=== PATIENT | female | born 2000 | race African-American/Black ===

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

== ENCOUNTER 2022-11-26 13:09 | Outpatient (CLI) | payer OTHER, SELFPAY ==
--- NOTE | ~2022-11-26 | US_ITS ---
EXAMINATION: US pelvic complete w TV DATE: 11/26/2022 14:21 INDICATION: Pelvic pain Comparison:No prior studies for comparison. TECHNIQUE: Multiple transabdominal and endovaginal sonographic images of the pelvis performed. FINDINGS: The uterus measures 8 x 3.3 x 4 cm. The endometrial complex measures 3.5 mm. The right ovary measures 1.8 x 1.4 x 1.6 cm and the left ovary is surgically absent. There is a small 1.5 cm right ovarian cyst. Normal doppler signal in both ovaries. There is no free fluid in the pelvis. There are no abnormal masses seen on either side. IMPRESSION: 1. Small 1.5 cm right ovarian cyst. Reviewed, dictated and finalized at location []
== END 2022-11-26 13:10 | disposition home or self-care (01) ==
PROVIDERS: PCP Family Medicine; Visit Provider Family Medicine
DX: R10.2 Pelvic and perineal pain (principal); N83.201 Unspecified ovarian cyst, right side
CPT/HCPCS: 76830; 76856

== ENCOUNTER 2025-05-24 09:30 | Emergency (ER) | payer OTHER, SELFPAY ==
--- NOTE | ~2025-05-24 | CT_ITS ---
EXAM/PROCEDURE: CT abd pelvis lumbar w con HISTORY: bilateral flank pain, UTI COMPARISON: None available. TECHNIQUE: Contrast-enhanced CT of abdomen and pelvis FINDINGS: The lung bases are clear and heart size normal. In the abdomen and pelvis, mild fatty liver changes and hepatomegaly with the liver measuring 22.5 cm in the cephalocaudal dimension. The bowel gas pattern is nonobstructive with no free air free fluid or pneumatosis. Moderate amount of stool extends to the cecum. No hydroureteronephrosis. No urolithiasis seen. Anteflex uterus and adnexal regions unremarkable. No grossly inflamed appendix. Pancreas spleen stomach and adrenal glands appear normal. The stomach is unopacified and nondistended but no obvious acute abnormality seen. No bulky mesenteric or retroperitoneal lymphadenopathy or masses. Anteverted uterus and adnexal regions unremarkable. Tampon is in place. Small bone island S1 vertebral body. Multilevel degenerative changes throughout the lumbar spine with multilevel spinal canal stenosis which may be severe at L4-5. IMPRESSION: No focal acute process seen to explain source of patient's symptoms. Several chronic appearing findings including hepatomegaly, and possibly multilevel spinal canal stenosis in the lumbar spine. Reviewed, dictated and finalized at location A. 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 Several ch ronic appearing findings including hepatomegaly, and possibly multilevel spinal canal stenosis in the lumbar spine.
[2025-05-24 09:41] VITALS: BP 147/97; PULSE 91; RESP 18; TEMP 36.6; O2SAT 100
[2025-05-24 10:27] LABS: Hematocrit 43.2 % (37.0-47.0); Hemoglobin 14.9 g/dL (12.0-15.0); Immature Granulocyte Percent A 0.5 % (0-0.5); Lymphocytes Absolute Auto 4.04 K/mm3 (0.9-3.2); Mean Corpuscular HGB Conc 34.5 g/dl (32-36); Mean Corpuscular Hemoglobin 30.8 pg (26-34); Mean Corpuscular Volume 89.4 fl (80-100); Nucleated Red Blood Cells Absolute Auto 0.000 K/mm3 (0.0-0.012); Nucleated Red Blood Cells Perc 0.0 % (0.0-0.2); Platelet Count Result 455 k/mm3 (150-375); Red Blood Count 4.83 M/mm3 (4.2-5.4); White Blood Count 10.1 K/mm3 (4.5-10.0)
[2025-05-24 10:33] LABS: Add Urine Microscopic? YES; Appearance Urine Cloudy (Clear); Glucose Urine UA Negative (Negative); Leukocyte Esterase Ur 2+ LEU/UL (Negative); Nitrate Urine Positive (Negative); Non Pathogenic Casts 0-2; Specific Grav Ur 1.018 (1.001-1.035)
--- OUTSIDE RECORDS SUMMARY | 2025-05-24 10:43 | XMS_ITS | Clinical Summary ---
Author Organization [facility] Address [address] [place] [address] Care Team Providers Care Engagement Liaison Name Role Phone Kirstin Knox MD Primary Care Provider + Unknown, Notinfile Unavailable Unavailable Allergies Active Allergy Reactions Criticality Noted Date Comments [place] Swelling Medium 03/09/2020 Medications No known medications Active Problems No known active problems Surgical History Surgery Date Site/Laterality Comments TONSILLECTOMY AND ADENOIDECTOMY OVARIAN CYST SURGERY LEFT Social History Tobacco Use Types Packs/Day Years Used Date Smoking Tobacco: Every Day Personal Safety Answer Date Recorded Getting School Help Needed Not on file 08/08 Comments No Sex and Gender Information Value Date Recorded Sex Assigned at Not on file 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 Gender Identity Not on file Sexual Orientation Not on file Obstetrics History Para Term AB IAB SAB Ectopic Multiple Livin g Live Births 1 Date Outcome GA Total Labor Labor/2nd/3rd Weight Sex Type Anes PTL Annelise A1 A5 Name Clin Last Filed Vital Signs Vital Sign Reading Time Taken Comments Blood Pressure 154/103 03/30/2022 3:13 PM CDT Pulse 99 03/30/2022 3:13 PM CDT Temperature 36.8 C (98.3 F) 03/30/2022 3:13 PM CDT Respiratory Rate 20 03/30/2022 3:13 PM CDT Oxygen Saturation 100% 03/30/2022 3:13 PM CDT Inhaled Oxygen Concentration - - Weight 143.8 kg (317 lb) 03/30/2022 3:13 PM CDT Height 167.6 cm (5' 6) 03/30/2022 3:13 PM CDT Body Mass Index 51.17 03/30/2022 3:13 PM CDT Plan of Treatment Not on file Insurance [facility] [place] [address] [facility] Care Teams Engagement Liaison Relationship Specialty Start Date End Date Kirstin Knox MD [address] [place] [address] [place] [address] PCP - General Family Medicine 03/30/22 Unknown, Notinfile 03/30/22
[2025-05-24 10:46] LABS: Alanine Aminotransferase 24 U/L (6-35); Albumin Level 3.9 g/dL (3.5-5.1); Alkaline Phosphatase 64 U/L (38-126); Anion Gap 8 mmol/L (4-12); Aspartate Amino Transferase 27 U/L (14-36); Bilirubin,Total 0.3 mg/dL (0.2-1.3); Blood Urea Nitrogen 11 mg/dL (7-17); Calcium 9.1 mg/dL (8.4-10.2); Carbon Dioxide 25 mmol/L (22-30); Chloride 106 mmol/L (98-107); Estimated CRCL calculation 177 ml/min; Estimated Glomerular Filt Rate > 60; Glucose 96 mg/dL (65-110); Potassium 4.0 mmol/L (3.4-5.0); Sodium 139 mmol/L (137-145); Total Protein 8.0 g/dL (6.3-8.2)
--- NOTE | 2025-05-24 10:47 | ED_ITS ---
HPI - Back Pain/Injury General Chief Complaint: Back Pain/Injury Stated Complaint: LOWER BACK PAIN X3D Time Seen by Provider: 05/24/25 10:11 History of Present Illness HPI Narrative: Patient is a 24-year-old female who presents to the ER with bilateral flank pain. She reports her pain started approximately 3 days ago. Patient endorses increased urinary urgency but denies any burning. She denies any recent fevers, chance of , risk of STDs, abdominal pain, or nausea/vomiting. Patient reports she has a history of ovarian torsion and has had an ovary removed. She also endorses a history of kidney stone with her last one approximately 7 years ago. Related Data Allergies Allergy/AdvReac Type Severity Reaction Status Date / Time peach Allergy Swelling Verified 05/24/25 09:31 of Lip/Tongue/Throat Review of Systems 2 Review of Systems: All systems reviewed & are unremarkable except as noted in HPI and below Exam 2 Narrative: GENERAL: Well appearing, morbidly obese, non-toxic, in no acute distress. HEAD: Normocephalic, atraumatic. NECK: Supple. No adenopathy, no masses. RESPIRATORY: Airway patent, respirations nonlabored. Clear to auscultation bilaterally, no rales, rhonchi, wheezing. CARDIOVASCULAR: Regular rate and rhythm without murmurs, rubs, or gallops. Peripheral pulses 2+ and equal bilaterally. ABDOMINAL: Soft, nontender, nondistended, no hepatosplenomegaly. Normoactive BS. MUSCULOSKELETAL: Moves all extremities. Strength/ROM intact without gross deformities. SKIN: Warm, dry, normal color. No rashes. NEURO: A&O X3. Speech clear. Cranial nerves II-XII intact. No ataxic movements. PSYCHIATRIC: Appropriate mood and affect. Normal interaction. Course Vital Signs Vital signs: Vital Signs Temperature 36.6 C 05/24/25 09:41 Pulse Rate 91 05/24/25 09:41 Respiratory Rate 18 05/24/25 09:41 Blood Pressure 147/97 H 05/24/25 09:41 Pulse Oximetry 100 05/24/25 09:41 Oxygen Delivery Room Air 05/24/25 09:41 Temperature 36.6 C 05/24/25 09:41 Pulse Rate 64 05/24/25 12:36 Respiratory Rate 16 05/24/25 12:36 Blood Pressure 121/68 05/24/25 12:36 Pulse Oximetry 100 05/24/25 12:36 Oxygen Delivery Room Air 05/24/25 09:41 MDM MDM Narrative Medical decision making narrative: Patient is a 24-year-old female who presents to the ER with bilateral flank pain. She reports her pain started approximately 3 days ago. Patient endorses increased urinary urgency but denies any burning. She denies any recent fevers, chance of , risk of STDs, abdominal pain, or nausea/vomiting. Patient reports she has a history of ovarian torsion and has had an ovary removed. She also endorses a history of kidney stone with her last one approximately 7 years ago. Labs Ordered: CBC, CMP, UA Imaging Ordered: CT abdomen pelvis, CT lumbar spine Medications Ordered: Morphine 4 mg IV, Zofran 4 mg IV, 1 L normal saline IV bolus, Bactrim p.o. Results: Patient's urinalysis indicates she has a urinary tract infection. Pt's CT scan indicates The lung bases are clear and heart size normal. In the abdomen and pelvis, mild fatty liver changes and hepatomegaly with the liver measuring 22.5 cm in the cephalocaudal dimension. The bowel gas pattern is nonobstructive with no free air free fluid or pneumatosis. Moderate amount of stool extends to the cecum. No hydroureteronephrosis. No urolithiasis seen. Anteflex uterus and adnexal regions unremarkable. No grossly inflamed appendix. Pancreas spleen stomach and adrenal glands appear normal. The stomach is unopacified and nondistended but no obvious acute abnormality seen. No bulky mesenteric or retroperitoneal lymphadenopathy or masses. Anteverted uterus and adnexal regions unremarkable. Tampon is in place. Small bone island S1 vertebral body. Multilevel degenerative changes throughout the lumbar spine with multilevel spinal canal stenosis which may be severe at L4-5. Diagnosis: Urinary tract infection Patient Education/Shared MDM: Results of lab work and imaging shared with patient. She endorses improvement of symptoms following medication administration. Patient strongly advised to maintain hydration status upon discharge and follow-up with her PCP as soon as possible for further evaluation. Pt was also advised to follow-up with neurosurgery regarding her back pain. She will be discharged home with a prescription for Bactrim and Lidocaine patches. Pt may take Tylenol and/or Ibuprofen for pain control. *Pt left before results could be shared with her. Prescriptions were sent to pharmacy. Differential Diagnosis Differential Diagnosis: Urinary tract infection, pyelonephritis, kidney stone, lumbar radiculopathy Lab Data MDM Lab Attestation statement: I personally reviewed the patient's lab results. 05/24/25 10:20 05/24/25 10:20 Labs: Lab Results 05/24/25 05/24/25 Range/Units 10:19 10:20 WBC 10.1 H (4.5-10.0) K/mm3 RBC 4.83 (4.2-5.4) M/mm3 Hgb 14.9 (12.0-15.0) g/dL Hct 43.2 (37.0-47.0) % MCV 89.4 (80-100) fl MCH 30.8 (26-34) pg MCHC 34.5 (32-36) g/dl RDW 11.9 (11.5-14.5) % Plt Count 455 H (150-375) k/mm3 MPV 8.6 (7.4-10.4) fl Immature Gran % (Auto) 0.5 (0-0.5) % Neut % (Auto) 48.3 (45.5-73.1) % Lymph % (Auto) 40.0 (18.3-44.2) % [place] % (Auto) 7.4 (2.6-8.5) % Eos % (Auto) 3.1 (0-4.4) % Baso % (Auto) 0.7 (0.2-1.2) % Lymph # (Auto) 4.04 H (0.9-3.2) K/mm3 [place] # (Auto) 0.8 H (0.1-0.6) K/mm3 Eos # (Auto) 0.3 (0-0.3) K/mm3 Baso # (Auto) 0.1 (0.0-0.1) K/mm3 Abs Immat Gran (auto) 0.05 H (0.00-0.031) K/mm3 Absolute Neuts (auto) 4.9 (1.3-6.7) K/mm3 Absolute Nucleated RBC 0.000 (0.0-0.012) K/mm3 Nucleated RBC % 0.0 (0.0-0.2) % Sodium 139 (137-145) mmol/L Potassium 4.0 (3.4-5.0) mmol/L Chloride 106 (98-107) mmol/L Carbon Dioxide 25 (22-30) mmol/L Anion Gap 8 (4-12) mmol/L BUN 11 (7-17) mg/dL Creatinine 0.68 L (0.7-1.0) mg/dL Estim Creat Clear Calc 177 ml/min Estimated GFR > 60 (59 - ) Glucose 96 (65-110) mg/dL Calcium 9.1 (8.4-10.2) mg/dL Total Bilirubin 0.3 (0.2-1.3) mg/dL AST 27 (14-36) U/L ALT 24 (6-35) U/L Alkaline Phosphatase 64 (38-126) U/L Total Protein 8.0 (6.3-8.2) g/dL Albumin 3.9 (3.5-5.1) g/dL Urine Color Yellow (Yellow) Urine Appearance Cloudy H (Clear) Urine pH 5.5 (5.0-9.0) Ur Specific [place] 1.018 (1.001-1.035) Urine Protein Negative (Negative) mg/dL Urine Glucose (UA) Negative (Negative) mg/dL Urine Ketones Negative (Negative) mg/dL Ur Blood (Man) 2+ H (Negative) Urine Nitrate Positive H (Negative) Urine Bilirubin Negative (Negative) Urine Urobilinogen 0.2 (<2.0) mg/dL Leukocyte Esterase Rfl 2+ H (Negative) JAMISON/UL Urine RBC 0-2 (0-2) /hpf Urine WBC >100 H (0-3) /hpf Ur Squamous Epith Cells None seen (Few) /hpf Urine Bacteria 4+ H /hpf Urine Casts 0-2 POC Urine HCG, Qual Negative (Negative) Imaging Data Attestation: I personally reviewed and interpreted this imaging study as follows: Radiologist's impression: ITS Impressions Miscellaneous CT Procedure 05/24/25 12:08 IMPRESSION: No focal acute process seen to explain source of patient's symptoms. Several chronic appearing findings including hepatomegaly, and possibly multilevel spinal canal stenosis in the lumbar spine. Discharge Plan Discharge Clinical Impression: Urinary tract infection, Degenerative disc disease Patient Disposition: Elopement After Seen by Prov Instructions: Urinary Tract Infection in Women (ED), Acute Low Back Pain (ED) Additional Instructions: Please return to the ER with any worsening symptoms. Follow-up with Neurosurgery as soon as possible for further back pain evaluation. Take all medications as prescribed, including regularly scheduled medications. Patient Language: Fijian Prescriptions: New sulfamethoxazole-trimethoprim [Bactrim DS] 800-160 mg tablet 1 tablet PO Q12H 5 Days Qty: 10 0RF lidocaine 5 % adhesive patch,medicated 2 patch topical DAILY Qty: 30 0RF Rx Instructions: leave on most painful area for up to 12 hrs No Action prednisone 20 mg tablet 40 mg PO DAILY 10 Days Qty: 20 0RF Follow-up/Referrals: PHYSICIAN,POST PARTUM NURSE [Primary Care Provider, Internal Medicine] Rafael Julien MD [Physician, Family Practice] Rima Galan MD [Physician, Neurosurgery] Stand Alone Forms: Work/School Release IP Time of Disposition: 12:48
[2025-05-24 11:02] LABS: BEDSIDEPREGUCG Negative (Negative)
[2025-05-24] MEDS: ONDANSETRON INJ 4 MG/2 ML VIAL IV PUSH (11:32)
[2025-05-24] MEDS: SODIUM CHLORIDE 0.9% IV 1,000 ML 999 ML IV CONT (11:32)
[2025-05-24] MEDS: MORPHINE SULFATE (*CRX) 4 MG/ML INJ IV PUSH (11:33)
--- OUTSIDE RECORDS SUMMARY | 2025-05-24 11:51 | XMS_ITS | Clinical Summary ---
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
--- NOTE | 2025-05-24 12:35 | PC.NURSE ---
Alba RN entered the pts room and she said take my IV out. I want to go home. Pt began crying and repeating over and over again that she wanted to leave. This RN spole with Maya SHEPARD about removing her IV and she said that it was okay and she was going to be working on her d/c paperwork now.
[2025-05-24 12:36] VITALS: BP 121/68; PULSE 64; RESP 16; O2SAT 100
[2025-05-24] MEDS: SULFAMETHOXAZOLE/TRIMETHOPRIM 800/160 MG DS TABLET 1 TAB PO (12:37)
== END 2025-05-24 12:50 | disposition left against medical advice (07) ==
PROVIDERS: Emergency Provider Registered Nurse
DX: N39.0 Urinary tract infection, site not specified (principal); M51.369 Other intervertebral disc degeneration, lumbar region without mention of lumbar back pain or lower extremity pain; Z87.442 Personal history of urinary calculi
CPT/HCPCS: 36415; 72132; 74177; 80053; 81001; 81025; 85025; 87086; 87186; 96361; 96374; 96375; 99284; A9270; J2270; J2405; J7030; Q9967